=== PATIENT | female | born 1970 | race Caucasian/White ===

== ENCOUNTER 2016-07-15 01:51 | Emergency (ER) | payer MEDICAID ==
[~2016-07-15] VITALS: Ht 152.4 cm; Wt 78.0 kg
[2016-07-15 01:55] VITALS: Ht 152.4 cm; Wt 78.0 kg
[2016-07-15] MEDS ORDERED: IBUPROFEN 800 MG TAB PO ONE (02:30)
--- NOTE | 2016-07-15 03:21 | RADRPT ---
PROCEDURE: XR Chest. CLINICAL INDICATION: cough TECHNIQUE: Portable single view of the chest COMPARISON: 03/30/2007 FINDINGS: The heart size is top normal with left ventricular prominence. No focal infiltrate, pleural effusio n, or overt congestive heart failure is seen. Minimal degenerative change of the spine. IMPRESSION: No definite acute pulmonary disease. RPTAT: HLBE Haydee [place] Physician Date Time Electronically viewed and signed by Haydee [place], Physician on 07/15/2016 03:21 LE/
--- NOTE | 2016-07-15 03:26 | ERD ---
ER Documentation Chief Complaint Date/Time DATE: 07/15/16 TIME: 03:25 Chief Complaint Dry throat with increased water intake and then increased urination HPI This is a 45-year-old female presents to the emergency room for evaluation of dry throat, nasal congestion and cough. The patient states that her symptoms have been present for 7 days duration. She denies any fevers but does state that she has chills. She has not taken any medication for this and came to the ER for evaluation. ROS All systems reviewed and are negative except as per history of present illness. Allergies Allergies: Coded Allergies: No Known Allergy (Verified Allergy, Unknown, 07/29/06) PMhx/Soc History of Surgery: No Anesthesia Reaction: No Hx Neurological Disorder: No Hx Respiratory Disorders: No Hx Cardiac Disorders: No Hx Psychiatric Problems: No Hx Miscellaneous Medical Probl: No Hx Alcohol Use: No Hx Substance Use: No Hx Tobacco Use: No Smoking Status: Never smoker Physical Exam Vitals Vital Signs Date Time Temp Pulse Resp B/P Pulse Ox O2 Delivery O2 Flow Rate FiO2 07/15/16 01:55 99.1 92 18 118/57 97 Physical Exam INITIAL VITAL SIGNS: Reviewed by me GENERAL: The patient is well developed and appropriate for usual state of health in no apparent distress HEENT: Bilateral nasal congestion, pupils equal, round, and reactive to light. EOMI. There is no scleral icterus. NECK: C-spine is soft and supple, there is no meningismus. There is no cervical lymphadenopathy. LUNGS: Clear to auscultation bilaterally. There are no rales, wheezes or rhonchi. HEART: Regular rate and rhythm, no murmurs, clicks, rubs or gallops. ABDOMEN: Soft, non-tender, non-distended. There are bowel sounds in all four quadrants. No rebound or guarding. EXTREMITIES: There is no peripheral cyanosis or edema. No focal swelling or erythema. NEUROLOGICAL: The patient moves all four extremities with 5/5 strength. Cranial nerves II - XII are intact. Normal gait. Alert and oriented SKIN: There is no apparent rash or petechiae. HEME/LYMPHATIC: There is no evidence of excessive bruising or lymphedema. PSYCHIATRIC: The patient does not appear anxious or depressed. Results 24 hrs Current Medications Medications (Trade) Dose Ordered Sig/Jose Route PRN Reason Start Time Stop Time Status Last Admin Dose Admin Ibuprofen (Motrin) 800 mg ONCE ONCE PO 07/15/16 02:30 07/15/16 02:31 DC 07/15/16 03:03 Procedures/MDM Chest X-ray 1V Interpreted by me: Soft Tissue: No acute abnormalities Bones: No acute abnormalities Mediastinum/Cardiac Silhouette/Lungs: [No acute abnormalities] This 45-year-old female presents to the ER for evaluation of multiple complaints. The patient is complaining of nasal congestion, dry cough, body aches, chills. When I evaluated her she was afebrile, and hemodynamically stable. Not hypoxic. X-ray does not reveal any acute infiltrate. This patient is likely suffering from a viral syndrome and will be discharged home with a prescription for Skip HUA. Departure Diagnosis: Primary Impression: Cough Additional Impression: Acute URI Condition: Stable SAVANNAH MONTILLA DO Jul 15, 2016 03:26
[2016-07-15] MEDS ORDERED: UDROBDM PO (03:27)
== END 2016-07-15 03:43 | disposition home or self-care (01) ==
LOC: FTE 01:51
DX: R05 Cough (principal); J06.9 Acute upper respiratory infection, unspecified
CPT/HCPCS: 71010; Z7610